=== PATIENT | female | born 1960 | race Caucasian/White ===

== ENCOUNTER 2018-08-22 02:16 | Emergency (ER) | payer OTHER ==
--- NOTE | 2018-08-22 02:36 | EDM.PDOC ---
ED HPI GENERAL MEDICAL PROBLEM - General Chief Complaint: Back Pain or Injury Stated Complaint: NECK PAIN Time Seen by Provider: 08/22/18 02:32 - History of Present Illness INITIAL COMMENTS - FREE TEXT/NARRATIVE: HISTORY AND PHYSICAL: History of present illness: The patient is a 58-year-old female who was seen here in our emergency department on August 06 when some insulation/boxes fell off of a truck and impacted her right shoulder and clavicle area; on that ED visit she had an x- ray of her right shoulder and diagnosed with an incomplete nondisplaced clavicle fracture and was given Pawlet and advised to follow-up. She presents [facility] telling me that she was advised to wear the sling for "30 days in order to allow the fracture to heal" and has been using the Pawlet and not applying any heat or ice, not taking any ibuprofen, and she did not follow-up in the clinic for further care and physical therapy. She now says that it hurts in her right posterior neck and the anterior chest wall. She says that's been going on since the injury and is not new. She and her significant other want to go back to [facility] and they want to know if it's okay for her to travel. Review of systems: As per history of present illness and below otherwise all systems reviewed and negative. Past medical history: As per history of present illness and as reviewed below otherwise noncontributory. Surgical history: As per history of present illness and as reviewed below otherwise noncontributory. Social history: No reported history of drug or alcohol abuse. Family history: As per history of present illness and as reviewed below otherwise noncontributory. Physical exam: General: Well-developed well-nourished female who has a sling in place and resists most movement of her right upper extremity. Vital signs are noted by me HEENT: Atraumatic, normocephalic, negative for conjunctival pallor or scleral icterus, mucous membranes moist, throat clear, neck supple, nontender, trachea midline. Lungs: Clear to auscultation, breath sounds equal bilaterally, chest nontender. Heart: S1S2, regular rate and rhythm no overt murmurs Abdomen: Deferred Pelvis: Deferred Genitourinary: Deferred. Rectal: Deferred. Extremities: Atraumatic with full range of motion of all extremities with the exception of the right upper extremity. There is some resolving ecchymosis which is greenish yellow in color at the clavicle area on the right leading down to the anterior chest wall there are no palpable defects deformities or crepitus appreciated in the anterior chest wall or the clavicle area. The shoulder alignment is normal. The patient has spasm of her right trapezius which is palpable and visible and is tender when I examine it. The patient can range of motion passively and is very resistant to do so and very tense. Distal humerus elbow forearm hand and wrist are intact and nontender and pulses are intact. There are no motor or sensory deficits in the right upper extremity. Legs are, negative for cords or calf pain. Neurovascular unremarkable. Neuro: Awake, alert, oriented. Cranial nerves II through XII unremarkable. Cerebellum unremarkable. Motor and sensory unremarkable throughout. Exam nonfocal. Diagnostics: None I reviewed the report and the x-rays performed on August 06 Therapeutics: Toradol The patient tells me that they are leaving right now for [place] and she does not want referral to therapy or orthopedic care. I have talked to her about removing the sling at least 2 times a day and trying to passively range of motion at the shoulder and the neck to try to open the area. I advised heat to the area of the neck and will give her diclofenac and Flexeril and have advised her to use these medications rather than the Pawlet so that she can open up the muscles of that area. Advised her to follow-up for physical therapy and further orthopedic care when she gets home to [place]. Impression: Right shoulder/chest wall pain reevaluation, status post blunt injury with clavicle fracture Definitive disposition and diagnosis as appropriate pending reevaluation and review of above. upper back,chest Pain Score (Numeric/FACES): 7 - Related Data Allergies Allergy/AdvReac Type Severity Reaction Status Date / Time No Known Allergies Allergy Verified 08/22/18 02:26 Home Meds: Home Meds Hydrocodone/Acetaminophen [Hydrocodon-Acetaminophen 5-325] 1 each PO Q8HR PRN [History] Past Medical History - Past Surgical History HEENT Surgical History: Reports: Eye Surgery Social & Family History - Family History Family Medical History: Noncontributory - Caffeine Use Caffeine Use: Reports: Coffee, Soda ED ROS GENERAL - Review of Systems Review Of Systems: ROS reveals no pertinent complaints other than HPI. ED EXAM, GENERAL - Physical Exam Exam: See Below (See dictation) Course - Vital Signs Last Recorded V/S: Last Vital Signs Temp 36.3 C 08/22/18 02:20 Pulse 72 08/22/18 02:20 Resp 18 08/22/18 02:20 BP 172/89 H 08/22/18 02:20 Pulse Ox 99 08/22/18 02:20 - Orders/Labs/Meds Orders: Active Orders 24 hr Category Date Time Status Ketorolac [Toradol] Med 08/22/18 02:51 Once 60 mg IM ONETIME ONE Medication Orders Ketorolac Tromethamine (Toradol) 60 mg IM ONETIME ONE Stop: 08/22/18 02:52 Meds: Medications Generic Name Dose Route Start Last Admin Trade Name Freq PRN Reason Stop Dose Admin Ketorolac Tromethamine 60 mg 08/22/18 02:51 Toradol IM 08/22/18 02:52 ONETIME ONE Departure - Departure Time of Disposition: 02:56 Disposition: Home, Self-Care 01 Condition: Good Clinical Impression: Chest wall pain, Neck pain Fracture of clavicle Qualifiers: Encounter type: subsequent encounter Clavicle location: unspecified part of clavicle Fracture type: closed Fracture alignment: nondisplaced Laterality: right Fracture healing: with routine healing Qualified Code(s): S42.001D - Fracture of unspecified part of right clavicle, subsequent encounter for fracture with routine healing Right shoulder pain Qualifiers: Chronicity: unspecified Qualified Code(s): M25.511 - Pain in right shoulder - Discharge Information Referrals: PCP,None [Primary Care Provider] - Forms: ED Department Discharge Additional Instructions: The following information is given to patients seen in the emergency department who are being discharged to home. This information is to outline your options for follow-up care. We provide all patients seen in our emergency department with a follow-up referral. The need for follow-up, as well as the timing and circumstances, are variable depending upon the specifics of your emergency department visit. If you don't have a primary care physician on staff, we will provide you with a referral. We always advise you to contact your personal physician following an emergency department visit to inform them of the circumstance of the visit and for follow-up with them and/or the need for any referrals to a consulting specialist. The emergency department will also refer you to a specialist when appropriate. This referral assures that you have the opportunity for followup care with a specialist. All of these measure are taken in an effort to provide you with optimal care, which includes your followup. Under all circumstances we always encourage you to contact your private physician who remains a resource for coordinating your care. When calling for followup care, please make the office aware that this follow-up is from your recent emergency room visit. If for any reason you are refused follow-up, please contact the [facility] emergency department at and ask to speak to the emergency department charge nurse. [facility]--Orthopedic clinic Professional [address] [address] Please call our clinic for follow-up care if you choose to stay in the [facility] otherwise when you get home to [place] scheduled to follow-up with an business employment specialist and get physical therapy arranged. Start using the medications as prescribed to you from [facility], Flexeril and Voltaren. Use heat to the areas of muscle spasm on your neck for you range of motion and try to remove the sling and passively move the arm around as I showed you every day and try to stretch out urine neck. Return To ER as needed and as discussed - My Orders Last 24 Hours: My Active Orders 08/22/18 02:51 Ketorolac [Toradol] 60 mg IM ONETIME ONE - Assessment/Plan Last 24 Hours: My Active Orders 08/22/18 02:51 Ketorolac [Toradol] 60 mg IM ONETIME ONE
[2018-08-22] MEDS ORDERED: Ketorolac 60 MG/2 ML SDV IM ONE (02:51)
== END 2018-08-22 03:19 | disposition home or self-care (01) ==
LOC: MW.ED 02:16
DX: R07.89 Other chest pain (principal); M54.2 Cervicalgia; S42.001D Fracture of unspecified part of right clavicle, subsequent encounter for fracture with routine healing; V58 Occupant of pick-up truck or van injured in noncollision transport accident
CPT/HCPCS: 96372; 99283; J1885